=== PATIENT | male | born 1980 | race African-American/Black ===

== ENCOUNTER 2020-07-11 07:54 | Emergency (ER) | payer SELFPAY ==
--- NOTE | 2020-07-11 08:17 | ER Document Report ---
ED General - General Chief Complaint: Palpitations Stated Complaint: PALPITATIONS Time Seen by Provider: 07/11/20 08:12 Primary Care Provider: CLARITZA BOWLING MD [NO LOCAL MD] - Follow up as needed MINI PEDRAZA MD [ACTIVE STAFF] - Follow up as needed YUDELKA DE LA CRUZ MD [ACTIVE STAFF] - Follow up as needed - [facility] Notes: 40-year-old male with a history of uncontrolled hypertension who is noncompliant medications presents emergency room for complaints of palpitations shortness of breath that started last night. Reports shortness of breath is constant and getting progressively worse. Denies any cardiac history, he does smoke cigars irregularly, noncigarette smoker. Denies any chest pain, nausea, vomiting, diarrhea, abdominal pain, headache, blurred vision, double vision, loss of vision, numbness or tingling down the arms legs or face. Patient does not take any type of anticoagulant. Reports his father does have a history of CVA and hypertension, mother is a history of pulmonary embolisms with IVC filters and hypertension. Patient is supposed be taking hydrochlorothiazide but has not dalila en the medication due to having a prescription because he does not have a primary care provider. Patient lives in [place], [place]. Denies any history of anxiety. Denies any history of thyroid disorder. Denies any previous cardiac history. MEDICATIONS: I agree with the patient medications as charted by the RN. ALLERGIES: I agree with the allergies as charted by the RN. PAST MEDICAL HISTORY/PAST SURGICAL HISTORY: Reviewed and agree as charted by RN. SOCIAL HISTORY: Reviewed and agree as charted by RN. FAMILY HISTORY: No significant familial comorbid conditions directly related to patient complaint EXAM: Reviewed vital signs as charted by RN. REVIEW OF SYSTEMS:reviewed vital signs by RN CONSTITUTIONAL : Denies fever, chills, or sweats. Denies recent illness. EENT: Denies eye, ear, throat, or mouth pain or symptoms. Denies nasal or sinus congestion or discharge. Denies throat, tongue, or mouth swelling or difficulty swallowing. CARDIOVASCULAR: Denies chest pain. Denies palpitations or racing or irregular heart beat. Denies ankle edema. RESPIRATORY: Denies cough, cold, or chest congestion. Reports shortness of breath. denies difficulty breathing, or wheezing. GASTROINTESTINAL: Denies abdominal pain or distention. Denies nausea, vomiting, or diarrhea. Denies blood in vomitus, stools, or per rectum. Denies black, tarry stools. Denies constipation. GENITOURINARY: Denies difficulty urinating, painful urination, burning, frequency, blood in urine, or discharge. MUSCULOSKELETAL: Denies back or neck pain or stiffness. Denies joint pain or swelling. SKIN: Denies rash, lesions or sores. HEMATOLOGIC : Denies easy bruising or bleeding. LYMPHATIC: Denies swollen, enlarged glands. NEUROLOGICAL: Denies confusion or altered mental status. Denies passing out or loss of consciousness. Denies dizziness or lightheadedness. Denies headache. Denies weakness or paralysis or loss of use of either side. Denies problems with gait or speech. Denies sensory loss, numbness, or tingling. Denies seizures. PSYCHIATRIC: Denies anxiety or stress. Denies depression, suicidal ideation, or homicidal ideation. ALL OTHER SYSTEMS REVIEWED AND NEGATIVE. Dictation was performed using [employer] voice recognition software PHYSICAL EXAMINATION: GENERAL: Well-appearing, well-nourished and in no acute distress. HEAD: Atraumatic, normocephalic. EYES: Pupils equal round and reactive to light, extraocular movements intact, sclera anicteric, conjunctiva are normal. ENT: Nares patent, oropharynx clear without exudates. Moist mucous membranes. NECK: Normal range of motion, supple without lymphadenopathy LUNGS: Breath sounds clear to auscultation bilaterally and equal. No wheezes rales or rhonchi. HEART: Regular rate and rhythm without murmurs ABDOMEN: Soft, nontender, nondistended abdomen. No guarding, no rebound. No masses appreciated. Musculoskeletal: Normal range of motion, no pitting or edema. No cyanosis. NEUROLOGICAL: Cranial nerves grossly intact. Normal speech, normal gait. Normal sensory, motor exams PSYCH: Normal mood, normal affect. SKIN: Warm, Dry, normal turgor, no rashes or lesions noted. [id number] Score: 1 - Related Data Allergies/Adverse Reactions: No Known Allergies Allergy (Verified 07/11/20 08:40) Past Medical History - General Information source: Patient - Social History Smoking Status: Current Every Day Smoker - cigars Family History: Reviewed & Not Pertinent, CAD, CVA, Hypertension Physical Exam - Vital signs Vitals: Temp Pulse Resp BP Pulse Ox 98.1 F 101 H 16 178/101 H 99 07/11/20 08:08 07/11/20 08:08 07/11/20 08:08 07/11/20 08:08 07/11/20 08:08 Course - Re-evaluation Re-evalutation: 07/11/20 11:01 Afebrile, heart rate between 90s to 100 and A. fib with blood pressure elevated. Patient denies any prior history of any cardiac issues. CBC negative for leukocytosis or anemia, CMP negative for hepatic or renal dysfunction, no electrolyte disturbances. TSH was normal. BMP 172, troponin 0.029 and second troponin 3 hours later 0.028. CTA of chest negative for any acute PE or dissection. Bilateral venous Doppler negative for DVT. Patient's states that his only history is uncontrolled hypertension, he has not been able to be seen by a primary care doctor due to lack of health insurance. Denies any history of diabetes. consulted with Dr. Ventura, humanities and languages professor radon inspector at 1055, he stated that he would like to give him a Lopressor 25 mg p.o. to help get his heart rate below 100. Will reevaluate in an hour. Consulted with Dr. Pino, ER supervising physician to review case since patient's new onset A. fib with shortness of breath at bedside and agreed with that he could either be admitted because of his poor compliance with medications but he also could be discharged if we are able to get social service assistant for him in follow-up. Lopressor 5 mg IVP given twice to help get his blood pressure down to 160s over 110s. Consult again with Dr. Ventura at 12:00pm patient living in [place] and does not have any follow-up outpatient for his new onset A. fib. Patient's chads score with his history is 1, only history that he admits to is having hypertension. Dr. Ventura did not agree with admission because he is a otherwise healthy 40-year-old male that can be followed up outpatient. Consulted with hospitalist Dr. Salina Oneil, who initially stated that she would take the patient however after consulting with social work therapist they were able to obtain a coupon for Xarelto for free for 1 month and found hypertensive medications on a $4 list at [facility] and surfaces were given to him to follow-up with [facility] in [place], instead of admitting him to the ER. heart rate in 70's, blood pressure reduced from his initial presentation. Denies any chest pain or shortness of breath once his heart rate was reduced. Dr. Oneil did do a medical consult for discharge due to patient being new onset A. fib. Patient given first dose of Xarelto, a atorvastatin and coreg 12.5mg. Dr. Oneil did discharge patient home with services. Patient was agreeable with this plan of care and agree with plan of care. After performing a Medical Screening Examination, I estimate there is LOW risk for RUPTURED ESOPHAGUS, PNEUMOTHORAX, PULMONARY EMBOLISM, ACUTE CORONARY SYNDROME, OR THORACIC AORTIC DISSECTION, thus I consider the discharge disposition reasonable. I have reevaluated this patient multiple times and no significant life threatening changes are noted. The patient and I have discussed the diagnosis and risks, and we agree with discharging home with close follow- up. We also discussed returning to the Emergency Department immediately if new or worsening symptoms occur. We have discussed the symptoms which are most concerning (e.g., bloody sputum, worsening pain or shortness of breath) that necessitate immediate return. 07/11/20 16:20 - Vital Signs Vital signs: Temp Pulse Resp BP Pulse Ox 98.7 F 101 H 19 168/117 H 99 07/11/20 14:56 07/11/20 08:08 07/11/20 14:17 07/11/20 14:17 07/11/20 14:17 - Laboratory Result Diagrams: 07/11/20 08:26 07/11/20 08:26 Laboratory results interpreted by me: 07/11/20 07/11/20 07/11/20 08:26 08:26 08:26 RDW 14.3 H Glucose 133 H NT-Pro-B Natriuret Pep 172 H Discharge - Discharge Clinical Impression: New onset atrial fibrillation, Shortness of breath Hypertension Qualifiers: Hypertension type: essential hypertension Qualified Code(s): I10 - Essential (primary) hypertension Condition: Stable Disposition: HOME, SELF-CARE Additional Instructions: You have atrial fibrillation. This is an abnormal movement of the heart that puts you at risk for having a stroke. You need to start taking a blood thinner called "XARELTO." Our social work therapist gave you a coupon for this medication that covers the cost of Xarelto for a whole month. Please call the "6-415" number on the coupon and they will send you even more coupons so you can keep getting this blood thinner for free. We also gave you several new blood pressure medications: Norvasc, Imdur and Coreg. These 3 medications will decrease your blood pressure and prevent a heart attack. They are all on the [facility] $4 list, so if you get them at [facility], they should not cost you more than $4 each. We also gave you a new medications called atorvastatin for treatment of high cholesterol. This medicine is also on the [facility] $4 list. For more refills on your medications, you need to start seeing a doctor regularly. Please follow up with the [facility] in the next 1-2 weeks. Please start diet and exercise and work on a goal of losing at least 20-30 pounds. You are dangerously overweight and you are risk for having diabetes, heart attacks, strokes and lots of other very bad diseases. Weight loss and exercise are the best medicine! Prescriptions: Carvedilol [Coreg] 1 tab PO Q12 #60 tab Isosorbide Mononitrate [Imdur 30 mg Tablet.er] 30 mg PO DAILY #30 tab.er.24h Atorvastatin Calcium [Lipitor 40 mg Tablet] 40 mg PO DAILY #30 tablet Amlodipine Besylate [Norvasc 5 mg Tablet] 5 mg PO DAILY #30 tablet Rivaroxaban [Xarelto] 20 mg PO DAILY #30 tablet Referrals: MINI PEDRAZA MD [ACTIVE STAFF] - Follow up as needed YUDELKA DE LA CRUZ MD [ACTIVE STAFF] - Follow up as needed CLARITZA BOWLING MD [NO LOCAL MD] - Follow up as needed
[2020-07-11 09:01] LABS: ALKALINE PHOSPHATASE 83 U/L (38-126); ANION GAP 8 (5-19); ASPARTATE AMINO TRANSFERASE 26 U/L (17-59); BILIRUBIN,DIRECT 0.3 mg/dL (0.0-0.4); BILIRUBIN,TOTAL 0.5 mg/dL (0.2-1.3); BLOOD UREA NITROGEN 12 mg/dL (7-20); CALCIUM 9.1 mg/dL (8.4-10.2); CARBON DIOXIDE 23 mmol/L (22-30); CHLORIDE 107 mmol/L (98-107); GLUCOSE 133 mg/dL (75-110); TOTAL PROTEIN 7.7 g/dL (6.3-8.2)
[2020-07-11 09:03] LABS: ABSOLUTE BASOPHILS # (AUTO) 0.1 10^3/uL (0.0-0.2); ABSOLUTE EOSINOPHILS # (AUTO) 0.1 10^3/uL (0.0-0.6); ABSOLUTE LYMPHOCYTES (AUTO) 3.1 10^3/uL (0.5-4.7); ABSOLUTE MONOCYTES (AUTO) 0.6 10^3/uL (0.1-1.4); ABSOLUTE NEUT (AUTO) 4.5 10^3/uL (1.7-8.2); BASOPHILS % (AUTO) 0.9 % (0-2); EOSINOPHILS % (AUTO) 1.5 % (0-6); HEMATOCRIT 43.6 % (37.9-51.0); HEMOGLOBIN 14.9 g/dL (13.5-17.0); LYMPHOCYTES % (AUTO) 36.9 % (13-45); MEAN CORPUSCULAR HEMOGLOBIN 30.6 pg (27.0-33.4); MEAN CORPUSCULAR HGB CONC 34.3 g/dL (32.0-36.0); MEAN CORPUSCULAR VOLUME 89 fl (80-97); MONOCYTES % (AUTO) 7.2 % (3-13); PLATELET COUNT 254 10^3/uL (150-450); RED BLOOD COUNT 4.89 10^6/uL (4.35-5.55); RED CELL DISTRIBUTION WIDTH 14.3 % (11.5-14.0); SEGMENTED NEUTROPHILS % (AUTO) 53.5 % (42-78); TOTAL CELLS COUNTED % (AUTO) 100 %; WHITE BLOOD COUNT 8.5 10^3/uL (4.0-10.5)
[2020-07-11 09:13] LABS: TROPONIN I 0.029 ng/mL
--- NOTE | 2020-07-11 10:03 | RADIOLOGY REPORT (SQ) ---
EXAM DESCRIPTION: CTA CHEST IMAGES COMPLETED DATE/TIME: 07/11/2020 9:42 am REASON FOR STUDY: new onset SOB 1d, new onset a fib, HTN COMPARISON: None. TECHNIQUE: CT scan of the chest performed using helical scanning technique with dynamic intravenous contrast injection. Images reviewed with lung, soft tissue and bone windows. Reconstructed coronal and sagittal MPR images reviewed. Additional 3 dimensional post-processing performed to develop Maximal Intensity Projection images (FL P). All images stored on PACS. All CT scanners at this facility use dose modulation, iterative reconstruction, and/or weight based d osing when appropriate to reduce radiation dose to as low as reasonably achievable (ALARA). [facility]: Dose Right [facility]: CareDose [facility]: Dose Right [facility]: Teradose 4D [facility]: PúbliKo CONTRAST TYPE AND DOSE: contrast/concentration: Isovue 350.00 mmol/ml; Total Contrast Delivered: 74. 0 ml; Total Saline Delivered: 71.0 ml Contrast bolus adequate for pulmonary arteries and aorta. RENAL FUNCTION: None required. The patient is less than 50 years old. RADIATION DOSE: CT Rad equipment meets quality standard of care and radiation dose reduction techniq ues were employed. CTDIvol: 31.0 - 33.1 mGy. DLP: 1064 mGy-cm. . LIMITATIONS: None. FINDINGS: LUNGS AND PLEURA: No masses, infiltrates, or pneumothorax. No pleural effusions or pleura l calcifications. AORTA AND GREAT VESSELS: No aneurysm. No dissection. HEART: No pericardial effusion. No significant coronary artery calcifications. PULMONARY ARTERIES: No emboli visualized in the main pulmonary arteries or the segmental branches. HILAR AND MEDIASTINAL STRUCTURES: No identified masses or abnormal nodes. HARDWARE: None in the chest. UPPER ABDOMEN: No significant findings. Limited exam. THYROID AND OTHER SOFT TISSUES: No masses. No adenopathy. BONES: No acute or significant finding. 3D MIPS: Confirm above findings. OTHER: No other significant finding. IMPRESSION: NORMAL CTA OF THE CHEST. NO PULMONARY EMBOLI. COMMENT: Quality ID # [id number]: Final reports with documentation of one or more dose reduction techniques (e.g., Automated exposure control, adjustment of the mA and/or kV according to patient size, use of iterative reconstruction technique) TECHNICAL DOCUMENTATION: JOB ID: [id number] 2010 [employer]- All Rights Reserved Reading location - IP/workstation name: [email or web address]
[2020-07-11 10:16] LABS: APPEARANCE,URINE CLEAR; BILIRUBIN,URINE NEGATIVE (NEGATIVE); COLOR,URINE YELLOW; GLUCOSE, URINE NEGATIVE (NEGATIVE); KETONES,URINE NEGATIVE (NEGATIVE); LEUKOCYTE ESTERASE,URINE NEGATIVE (NEGATIVE); NITRITE,URINE NEGATIVE (NEGATIVE); PROTEIN,URINE NEGATIVE (NEGATIVE); URINE SPECIFIC GRAVITY 1.041; UROBILINOGEN,URINE NEGATIVE mg/dL (<2.0)
--- NOTE | 2020-07-11 10:40 | EKG REPORT ---
SEVERITY:- ABNORMAL ECG - ATRIAL FIBRILLATION, V-RATE 98-155 ANTERIOR Q WAVES, POSSIBLY DUE TO LVH BORDERLINE PROLONGED QT INTERVAL LVH WITH STRAIN : Confirmed by: Shawnee Ferrell MD 11-Jul-2020 10:39:27
[2020-07-11] MEDS ORDERED: METOPROLOL TARTRATE 25 MG TABLET PO ONE (10:59)
[2020-07-11] MEDS ORDERED: METOPROLOL TARTRATE PF/INJ 5 MG/5 ML SDV IV ONE ×2 (11:59→12:39)
[2020-07-11] MEDS ORDERED: APIXABAN 5 MG TABLET PO ONE (13:24)
--- NOTE | 2020-07-11 13:32 | ER Document Report ---
Doctor's Note Notes: 07/11/20 13:29 This is a patient I was asked to evaluate along with midlevel provider today who came in with palpitations, mild dyspnea and new onset atrial fibrillation. Patient is a 40-year-old male with history of hypertension for a number years not currently on any treatment and noncompliant with any medical follow-up. He smokes several black in miles every day. He denies use of cannabis abuse of alcohol. He is not known to be diabetic and has no history of hyperlipidemia. He denies any chest pain. He specifically denies any use of cocaine. Exam is remarkable for an irregularly irregular cardiac rhythm. His blood pressure is quite elevated around 180/130 initially. EKG is reviewed and is remarkable for atrial fibrillation with a controlled ventricular response rate about 90-95. Chemistry profile, troponin, CBC, TSH and UDS unremarkable. Recommend administration of IV beta-xena. If his rate can be kept under adequate control his blood pressure lowered think he could potentially have early outpatient follow-up with cardiology. He will need further evaluation with an echocardiogram. I have recommended consultation with the on-call district service manager Dr. Ferrell. We are not able to assure adequate follow-up and I would recommend inpatient admission.
--- NOTE | 2020-07-11 13:45 | RADIOLOGY REPORT (SQ) ---
EXAM DESCRIPTION: VENOUS BILATERAL LOWER IMAGES COMPLETED DATE/TIME: 07/11/2020 12:05 pm REASON FOR STUDY: SOB, HTN, r/o DVT COMPARISON: None. TECHNIQUE: Dynamic and static scott scale and color images acquired of both lower extremity venous sy stems. Selected spectral images acquired with additional compression and augmentation maneuvers. Imag es stored on PACS. LIMITATIONS: None. FINDINGS: RIGHT LEG COMMON FEMORAL AND FEMORAL: Normal phasicity, compression and augmentation. No visualized echogenic m aterial on scott scale. No defects on color images. POPLITEAL: Normal compression and augmentation. No visualized echogenic material on scott scale. No de fects on color images. CALF VESSELS: Normal compression and augmentation. No visualized echogenic material on scott scale. No defects on color image. GSV AND SSV: Normal compression. No visualized echogenic material on scott scale. No defects on color images. ANY DEEP VENOUS INSUFFICIENCY: Not evaluated. ANY EVIDENCE OF POPLITEAL CYST: No. OTHER: No other significant finding. LEFT LEG COMMON FEMORAL AND FEMORAL: Normal phasicity, compression and augmentation. No visualized echogenic m aterial on scott scale. No defects on color images. POPLITEAL: Normal compression and augmentation. No visualized echogenic material on scott scale. No de fects on color images. CALF VESSELS: Normal compression and augmentation. No visualized echogenic material on scott scale. No defects on color images. GSV AND SSV: Normal compression. No visualized echogenic material on scott scale. No defects on color images. ANY DEEP VENOUS INSUFFICIENCY: Not evaluated. ANY EVIDENCE POPLITEAL CYST: No. OTHER: No other significant finding. IMPRESSION: NO EVIDENCE DVT OR SVT IN EITHER LEG. TECHNICAL DOCUMENTATION: JOB ID: [id number] [id number] 2010 [employer]- All Rights Reserved Reading location - IP/workstation name: [email or web address]
[2020-07-11 14:29] VITALS: BP 168/117
[2020-07-11] MEDS ORDERED: ATORVASTATIN CALCIUM 40 MG TABLET PO ONE (14:30)
[2020-07-11] MEDS ORDERED: RIVAROXABAN 10 MG TABLET PO ONE (14:30)
[2020-07-11] MEDS ORDERED: CARVEDILOL 12.5 MG TABLET PO ONE (14:30)
--- NOTE | 2020-07-11 15:29 | PDOC CONSULTATION ---
Consultation Consult Date: 07/11/20 Provider Consulted: LEWIS COLEY Consult reason:: atrial fibrillation, new onset History of Present Illness History of Present Illness: RIAN GUY JR is a 40 year old obese man with longstanding, untreated HTN and HLD who presents to the ED with SOB. He was found to have new-onset atrial fibrillation with RVR, treated with beta blockers. He continues to have asymptomatically elevated BP. At the time of our interview, he denies vision changes, MISTRY, SOB, CP, KNOWLES, orthopnea, LE edema. He is not currently taking any medications, does not have a PCP and does not have health insurance. He is working and has income, and tells me that he can afford prescriptions, but just needs refills on his BP medications because he hasn't been able to make time to go see a new doctor. He lives with his girlfriend. He has no known history of DM2, CAD, [place], stroke. He is a current every day smoker. He does have a family history of heart disease and stroke, but he does not know ages at which family members were diagnosed. Past Medical History Cardiac Medical History: Reports: Hyperlipidema, Hypertension Past Surgical History Past Surgical History: Reports: None Social History Smoking Status: Current Every Day Smoker Frequency of Alcohol Use: None Hx Recreational Drug Use: No Hx Prescription Drug Abuse: No Family History Family History: CAD, CVA, Hypertension Parental Family History Reviewed: Yes Children Family History Reviewed: Yes Sibling(s) Family History Reviewed.: Yes Medication/Allergy Home Medications: Amlodipine Besylate [Norvasc 5 mg Tablet] 5 mg PO DAILY #30 tablet 07/11/20 Atorvastatin Calcium [Lipitor 40 mg Tablet] 40 mg PO DAILY #30 tablet 07/11/20 Carvedilol [Coreg] 1 tab PO Q12 #60 tab 07/11/20 Isosorbide Mononitrate [Imdur 30 mg Tablet.er] 30 mg PO DAILY #30 tab.er.24h 07/11/20 Rivaroxaban [Xarelto] 20 mg PO DAILY #30 tablet 07/11/20 Allergies/Adverse Reactions: No Known Allergies Allergy (Verified 07/11/20 08:40) Physical Exam Vital Signs: Temp Pulse Resp BP Pulse Ox 98.7 F 101 H 19 168/117 H 99 07/11/20 14:56 07/11/20 08:08 07/11/20 14:17 07/11/20 14:17 07/11/20 14:17 Intake & Output 07/10/20 07/11/20 07/12/20 06:59 06:59 06:59 Weight 126 kg General appearance: PRESENT: no acute distress, cooperative, obese Mouth exam: PRESENT: moist Neck exam: ABSENT: JVD Respiratory exam: PRESENT: clear to auscultation kelly, unlabored Cardiovascular exam: PRESENT: irregular rhythm GI/Abdominal exam: PRESENT: normal bowel sounds, soft Extremities exam: ABSENT: pedal edema Musculoskeletal exam: PRESENT: ambulatory Neurological exam: PRESENT: alert, awake, oriented to person, oriented to place, oriented to time, oriented to situation Psychiatric exam: PRESENT: appropriate affect Results Laboratory Results: 07/11/20 08:26 07/11/20 08:26 07/11/20 07/11/20 07/11/20 08:26 08:26 08:26 WBC 8.5 RBC 4.89 Hgb 14.9 Hct 43.6 MCV 89 MCH 30.6 MCHC 34.3 RDW 14.3 H Plt Count 254 Seg Neutrophils % 53.5 Sodium 138.3 Potassium 4.0 Chloride 107 Carbon Dioxide 23 Anion Gap 8 BUN 12 Creatinine 0.92 Est GFR ( Amer) > 60 Glucose 133 H Calcium 9.1 Magnesium 2.0 Total Bilirubin 0.5 AST 26 Alkaline Phosphatase 83 Total Protein 7.7 Albumin 4.0 TSH 3.56 Urine Color Urine Appearance Urine pH Ur Specific [place] Urine Protein Urine Glucose (UA) Urine Ketones Urine Blood Urine Nitrite Ur Leukocyte Esterase Urine WBC (Auto) Urine RBC (Auto) 07/11/20 10:01 WBC RBC Hgb Hct MCV MCH MCHC RDW Plt Count Seg Neutrophils % Sodium Potassium Chloride Carbon Dioxide Anion Gap BUN Creatinine Est GFR ( Amer) Glucose Calcium Magnesium Total Bilirubin AST Alkaline Phosphatase Total Protein Albumin TSH Urine Color YELLOW Urine Appearance CLEAR Urine pH 5.0 Ur Specific [place] 1.041 Urine Protein NEGATIVE Urine Glucose (UA) NEGATIVE Urine Ketones NEGATIVE Urine Blood NEGATIVE Urine Nitrite NEGATIVE Ur Leukocyte Esterase NEGATIVE Urine WBC (Auto) 1 Urine RBC (Auto) 0 07/11/20 07/11/20 08:26 12:15 Troponin I 0.029 0.028 NT-Pro-B Natriuret Pep 172 H Impressions: Chest/Abdomen CTA 07/11/20 08:42 IMPRESSION: NORMAL CTA OF THE CHEST. NO PULMONARY EMBOLI. Venous Doppler Study 07/11/20 08:46 IMPRESSION: NO EVIDENCE DVT OR SVT IN EITHER LEG. Assessment and Plan - Diagnosis (1) New onset atrial fibrillation Is this a current diagnosis for this admission?: Yes (2) Hypertension Qualifiers: Hypertension type: essential hypertension Qualified Code(s): I10 - Essential (primary) hypertension Is this a current diagnosis for this admission?: Yes (3) Obesity (BMI 30-39.9) Is this a current diagnosis for this admission?: Yes (4) Hyperlipidemia Qualifiers: Hyperlipidemia type: unspecified Qualified Code(s): E78.5 - Hyperlipidemia, unspecified Is this a current diagnosis for this admission?: Yes (5) Hyperglycemia Is this a current diagnosis for this admission?: Yes - Plan Summary Summary: RIAN GUY JR is a 40 year old obese man with HTN, HLD, tobacco abuse who presents with new-onset atrial fibrillation. VS notable for elevated BP. Labs notable for barely elevated troponin to 0.02 which trended down upon re-check, normal TSH and hyperglycemia to 133. He likely has undiagnosed DM2. EKG notable for LVH, atrial fibrillation. He is a daily smoker. He is obese. CHADSVASC score 1 (if we count DM2). He is at relatively low risk for bleeding complications given young age. I would recommend discharge home on the following medication regimen after control of heart rate and blood pressure: 1) Xarelto - to provide coupon for free 30 day supply and he can keep getting more coupons by calling the 1-800 number provided on the coupon * I advised him to start taking a daily baby aspirin if he is unable to obtain Xarelto at an affordable cost in the future. 2) atorvastatin 40 mg daily (available on the [facility] $4 list) 3) Coreg 12.5 mg BID (available on the [facility] $4 list) 4) Norvasc 5 mg daily (available on the [facility] $4 list) 5) Imdur 30 mg daily (available on the [facility] $4 list) has been consulted and will provide the patient with information on PCP follow up at the [facility]. He will need outpatient labs including lipids/HbA1c on follow-up. He was advised to stop smoking and to lose at least 10% body weight. - Time Time Spent with patient: 35 or more minutes Anticipated Discharge Disposition: Home, Self Care Anticipated Discharge Timeframe: within 24 hours
== END 2020-07-11 14:55 | disposition home or self-care (01) ==
LOC: ER 07:54
DX: I48.91 Unspecified atrial fibrillation (principal); R06.02 Shortness of breath; I10 Essential (primary) hypertension; R00.2 Palpitations; F17.290 Nicotine dependence, other tobacco product, uncomplicated; Z79.899 Other long term (current) drug therapy
CPT/HCPCS: 93005; 96376; 99285; 96374; 36415; 83735; 84443; 85025; 85730; 80053; 81001; 84484; 83880; 93970; 71275; 93010; J3490

== ENCOUNTER 2020-09-12 17:28 | Emergency (ER) | payer SELFPAY ==
--- NOTE | 2020-09-12 18:25 | ER Document Report ---
ED Medical Screen (RME) - General Chief Complaint: Rib Pain Stated Complaint: RIGHT RIB/BACK PAIN Time Seen by Provider: 09/12/20 18:20 Mode of Arrival: Ambulatory Information source: Patient Notes: 40-year-old male presented to ED for complaint of right rib right flank and right abdominal pain. He states he had similar pain about a week ago and went to [facility] they gave him some morphine and some powder drink that he put into some water and drain and then gave him some mag citrate that he had to go to the store and buy. He states he still has some pain not near as bad as it was but he is still having some pain in these areas. Will order some rib x-rays and some blood in urine and he will be seen by another provider. I have greeted and performed a rapid initial assessment of this patient. A comprehensive ED assessment and evaluation of the patient, analysis of test results and completion of medical decision making process will be conducted by an additional ED providers. - Related Data Allergies/Adverse Reactions: No Known Allergies Allergy (Verified 07/11/20 08:40) Past Medical History - Past Medical History Cardiac Medical History: Reports: Hx Hypercholesterolemia, Hx Hypertension Past Surgical History: Reports: Hx Abdominal Surgery Physical Exam - Vital signs Vitals: Temp Pulse Resp BP Pulse Ox 98.9 F 56 L 18 179/103 H 99 09/12/20 17:44 09/12/20 17:44 09/12/20 17:44 09/12/20 17:44 09/12/20 17:44 Course - Vital Signs Vital signs: Temp Pulse Resp BP Pulse Ox 98.9 F 56 L 18 179/103 H 99 09/12/20 17:44 09/12/20 17:44 09/12/20 17:44 09/12/20 17:44 09/12/20 17:44
[2020-09-12 19:16] LABS: ABSOLUTE BASOPHILS # (AUTO) 0.1 10^3/uL (0.0-0.2); ABSOLUTE EOSINOPHILS # (AUTO) 0.1 10^3/uL (0.0-0.6); ABSOLUTE MONOCYTES (AUTO) 0.8 10^3/uL (0.1-1.4); ABSOLUTE NEUT (AUTO) 7.4 10^3/uL (1.7-8.2); BASOPHILS % (AUTO) 0.8 % (0-2); EOSINOPHILS % (AUTO) 1.1 % (0-6); HEMATOCRIT 39.5 % (37.9-51.0); HEMOGLOBIN 13.3 g/dL (13.5-17.0); LYMPHOCYTES % (AUTO) 25.9 % (13-45); MEAN CORPUSCULAR HEMOGLOBIN 30.2 pg (27.0-33.4); MEAN CORPUSCULAR HGB CONC 33.6 g/dL (32.0-36.0); MEAN CORPUSCULAR VOLUME 90 fl (80-97); MONOCYTES % (AUTO) 7.4 % (3-13); PLATELET COUNT 298 10^3/uL (150-450); RED CELL DISTRIBUTION WIDTH 13.6 % (11.5-14.0); SEGMENTED NEUTROPHILS % (AUTO) 64.8 % (42-78); TOTAL CELLS COUNTED % (AUTO) 100 %; WHITE BLOOD COUNT 11.4 10^3/uL (4.0-10.5)
--- NOTE | 2020-09-12 19:19 | RADIOLOGY REPORT (SQ) ---
EXAM DESCRIPTION: RIBS RIGHT W/PA CHEST IMAGES COMPLETED DATE/TIME: 09/12/2020 5:56 pm REASON FOR STUDY: Right rib pain. COMPARISON: CTA chest 07/14/2020. TECHNIQUE: Frontal view of the chest and additional views of the right ribs acquired. NUMBER OF VIEWS: Three views LIMITATIONS: None. FINDINGS: FRONTAL CXR: No pneumothorax. No pleural effusion. No atelectasis or infiltrates. RIBS: No displaced rib fractures. No lytic or blastic bony lesions. OTHER: No other significant finding. IMPRESSION: NO PNEUMOTHORAX. NO DISPLACED RIB FRACTURES. COMMENT: SITE OF TRAUMA/COMPLAINT MARKED/STAMP COMPLETED: NOT APPLICABLE. TECHNICAL DOCUMENTATION: JOB ID: [id number] 2010 [employer]- All Rights Reserved Reading location - IP/workstation name: [email or web address]
[2020-09-12 19:32] LABS: ALBUMIN 4.2 g/dL (3.5-5.0); ALKALINE PHOSPHATASE 81 U/L (38-126); ANION GAP 6 (5-19); APPEARANCE,URINE CLEAR; ASPARTATE AMINO TRANSFERASE 27 U/L (17-59); BILIRUBIN,DIRECT 0.1 mg/dL (0.0-0.4); BILIRUBIN,TOTAL 0.5 mg/dL (0.2-1.3); BILIRUBIN,URINE NEGATIVE (NEGATIVE); BLOOD UREA NITROGEN 13 mg/dL (7-20); CALCIUM 9.3 mg/dL (8.4-10.2); CARBON DIOXIDE 30 mmol/L (22-30); CHLORIDE 103 mmol/L (98-107); COLOR,URINE YELLOW; GLUCOSE 109 mg/dL (75-110); GLUCOSE, URINE NEGATIVE (NEGATIVE); KETONES,URINE NEGATIVE (NEGATIVE); LEUKOCYTE ESTERASE,URINE NEGATIVE (NEGATIVE); NITRITE,URINE NEGATIVE (NEGATIVE); POTASSIUM 4.3 mmol/L (3.6-5.0); PROTEIN,URINE 30 mg/dL (NEGATIVE); TOTAL PROTEIN 7.9 g/dL (6.3-8.2); URINE SPECIFIC GRAVITY 1.029; UROBILINOGEN,URINE NEGATIVE mg/dL (<2.0)
--- NOTE | 2020-09-12 20:01 | ER Document Report ---
ED General - General Chief Complaint: Rib Pain Stated Complaint: RIGHT RIB/BACK PAIN Time Seen by Provider: 09/12/20 18:20 Mode of Arrival: Ambulatory Information source: Patient Notes: This 40-year-old man presents to the emergency department with a complaint of pain in the right back area radiating around to the right side of the abdomen. He has had a history of similar episodes in the past states he was seen in [place] and evaluated in was put on medications for retained fecal material. He states he did not complete medications and his symptoms had improved. He also notes a tightness in his back which requires him to shift to move when he is driving. He denies a rash or signs and symptoms that might suggest a zoster outbreak. He is presently not taking any medications for the discomfort. He denies pleuritic chest pain or shortness of breath. - Related Data Allergies/Adverse Reactions: No Known Allergies Allergy (Verified 07/11/20 08:40) Past Medical History - General Information source: Patient - Social History Smoking Status: Unknown if Ever Smoked Family History: Reviewed & Not Pertinent, CAD, CVA, Hypertension - Past Medical History Cardiac Medical History: Reports: Hx Hypercholesterolemia, Hx Hypertension Past Surgical History: Reports: Hx Abdominal Surgery Review of Systems - Review of Systems Notes: Constitutional: Negative for fever. HENT: Negative for sore throat. Eyes: Negative for visual changes. Cardiovascular: Negative for chest pain. Respiratory: Negative for shortness of breath. Gastrointestinal: See HPI Genitourinary: Negative for dysuria. Musculoskeletal: See HPI Skin: Negative for rash. Neurological: Negative for headaches, weakness or numbness. 10 point ROS negative except as marked above and in HPI. Physical Exam - Vital signs Vitals: Temp Pulse Resp BP Pulse Ox 98.9 F 56 L 18 179/103 H 99 09/12/20 17:44 09/12/20 17:44 09/12/20 17:44 09/12/20 17:44 09/12/20 17:44 - Notes Notes: PHYSICAL EXAMINATION: Physical Exam: General: Well-nourished well-developed in no acute distress HEENT: NC/AT, pupils equal round and reactive to light, MM moist,nares clear, oropharynx clear, airway patent Neck: supple, no adenopathy, no masses. Good range of motion Lungs: clear, no wheezing, no rales no rhonchi CVS: Regular rate and rhythm no murmur gallop or rub Abdomen: Soft, active, nontender, no masses, no hepatosplenomegaly Ext: No edema, clubbing or cyanosis. Neuro: Alert and responsive, moving all 4 extremities on command, cranial nerves intact, no focal findings Skin: Intact no open lesions, no rash PSYCH: Normal mood, normal affect. Course - Re-evaluation Re-evalutation: 09/12/20 23:00 I discussed the findings of the laboratory tests with the patient, urinalysis is negative labs essentially normal and x-ray of the chest is negative for rib injury or pneumothorax. I explained to the patient that his symptoms appear to be musculoskeletal we will prescribe a muscle relaxant for treatment. I encouraged him to follow-up with his physician in [place] regarding his GI related symptoms. Patient describes a rumbling and cramping sensation at times. He is given a short course of Bentyl and encouraged to drink plenty of fluids and to eat fiber. He acknowledges understanding of this plan and is in agreeme nt. - Vital Signs Vital signs: Temp Pulse Resp BP Pulse Ox 98.2 F 76 18 180/100 H 100 09/12/20 23:22 09/12/20 23:22 09/12/20 23:22 09/12/20 23:22 09/12/20 23:22 - Laboratory Result Diagrams: 09/12/20 18:40 09/12/20 18:40 Laboratory results interpreted by me: 09/12/20 09/12/20 18:40 18:40 WBC 11.4 H Hgb 13.3 L Urine Protein 30 H I have reviewed laboratory data and used this information for the treatment decisions regarding the patient. - Diagnostic Test Radiology reviewed: Image reviewed, Reports reviewed Radiology results interpreted by me: 09/12/20 23:02 Ribs w/Chest X-Ray 09/12/20 18:23 IMPRESSION: NO PNEUMOTHORAX. NO DISPLACED RIB FRACTURES. - EKG Interpretation by Me Rate: Normal - EKG interpreted by Dr. Reyes: Normal sinus rhythm, rate 63, W[place] interval 180 ms, QT interval 444 ms, normal axis, borderline T wave abnormality noted in the inferior leads, compared to EKG dated 07/11/2020, atrial fibrillation is no longer present. Interpretation abnormal EKG Discharge - Discharge Clinical Impression: Musculoskeletal back pain, Spasm of bowel Disposition: HOME, SELF-CARE Instructions: Flank Pain ([facility]) Additional Instructions: You were seen in the emergency department tonight with right-sided back and flank pain. You are given a prescription for a muscle relaxant baclofen, please take the medication as prescribed and follow-up with your doctor as needed. You are also given a medication for intestinal spasm, dicyclomine, take the medication as prescribed. Drink plenty of fluids and fiber to your diet and follow-up with your doctor as needed HOME CARE INSTRUCTIONS & INFORMATION: Thank you for choosing us for your medical needs. We hope you're satisfied with the care you received. After you leave, you must properly care for your problem and, at the same time, observe its progress. Any condition can change. Some illnesses can change rapidly over hours or days. If your condition worsens, return to the Emergency Department or see your physician promptly. ABOUT YOUR X-RAYS AND EKG'S: If you had an EKG or X-rays taken, they have been read by the Emergency Physician. The X-rays and EKG's will also be read by a Radiologist or [employer] [facility] within 24 hours. If discrepancies are noted, you will be notified by telephone. Please be certain the ED has a correct telephone number & address where you can be reached. Also, realize that some fractures or abnormalities do not show up on initial X-rays. If your symptoms continue, see your physician. ABOUT YOUR LABORATORY TEST: If you had laboratory tests, the results have been reviewed by the Emergency Physician. Some test results (for example cultures) may not be available for several days. You will be contacted if any test result shows you need additional treatment. Please be certain the ED has a correct telephone number and address where you can be reached. ABOUT YOUR MEDICATIONS: You will receive instructions on how to take your m edicine on the prescription label you receive. Additional information may be provided by the Pharmacy. If you have questions afterwards, call the ED for clarification or further instructions. Some prescribed medications may cause drowsiness. Do not perform tasks such as driving a car or operating machinery without consulting your Pharmacist. If you feel you need a refill of pain medication, your condition will need re-evaluation. Please do not call for a refill of any medication. ABOUT YOUR SIGNATURE: Signature of this document acknowledges to followin. Understanding that you received emergency treatment and that you may be released before al medical problems are known or treated. Please be certain the ED has a correct phone number & address where you can be reached. 2. Acknowledgement that you will arrange for follow-up care as recommended. 3. Authorization for the Emergency Physician to provide information to your follow-up Physician in order to maximize your care. AT ANY TIME, IF YOUR SYMPTOMS CHANGE SIGNIFICANTLY OR WORSEN OR YOU DEVELOP NEW SYMPTOMS, RETURN TO THE EMERGENCY DEPARTMENT IMMEDIATELY FOR RE-EVALUATION. OUR GOAL IS TO PROVIDE EXCELLENT MEDICAL CARE! WE HOPE THAT WE HAVE MET YOUR EXPECTATIONS DURING YOUR EMERGENCY DEPARTMENT VISIT AND THAT YOU FEEL YOU HAVE RECEIVED EXCELLENT CARE! Prescriptions: Baclofen [Baclofen 10 mg Tablet] 10 mg PO TID PRN #20 tab PRN Reason: Abdominal Cramping Dicyclomine HCl [Bentyl 10 mg Capsule] 10 mg PO TID PRN #20 capsule PRN Reason: Abdominal Cramping
--- NOTE | 2020-09-12 20:42 | EKG REPORT ---
SEVERITY:- ABNORMAL ECG - SINUS RHYTHM CONSIDER LEFT VENTRICULAR HYPERTROPHY BORDERLINE T ABNORMALITIES, INFERIOR LEADS : Confirmed by: Mike Mancini MD 12-Sep-2020 20:40:34
[2020-09-12 23:23] VITALS: BP 180/100
== END 2020-09-12 23:23 | disposition home or self-care (01) ==
LOC: ER 17:28
DX: M54.9 Dorsalgia, unspecified (principal); K58.8 Other irritable bowel syndrome; R07.81 Pleurodynia; E78.00 Pure hypercholesterolemia, unspecified; I10 Essential (primary) hypertension
CPT/HCPCS: 36415; 80053; 81001; 83690; 85025; 87086; 93005; 93010; 99285